=== PATIENT | male | born 1950 | race African-American/Black ===

== ENCOUNTER 2017-03-07 02:22 | Emergency (ER) | payer MEDICARE ==
--- NOTE | 2017-03-07 02:57 | ED Physician Documentation ---
General Adult - HISTORIAN Historian: patient - HPI Chief Complaint: General Adult Onset: hours (Last PM) Timing: still present Severity: moderate Modifying Factors: sitting makes worse, standing or moving seems to help Context: no precipitating factor noted Quality: achy feeling Further Comments: yes (Patient states that within the last 24 hours he has started to have some waxing and wain muscle aches in his legs bilat. When one hurts the other hurts. Has started some atorvastatin 4-5 days ago. Pain seems worse at this time. Has had some back pain in the past but has not cause any leg pain in the past. No weaknesss noted.) - ROS CONST: denies: fever, chills - PAST HX Past History: none, hypertension, renal disease Other History: CVA, other (allergeries) Surgeries/Procedures: none Immunizations: referred to PCP Allergies/Adverse Reactions: Allergies Allergy/AdvReac Type Severity Reaction Status Date / Time No Known Allergies Allergy Verified 03/07/17 02:44 Home Medications: Ambulatory Orders Medication Instructions Recorded Allopurinol [Zyloprim] 150 mg PO QD 08/05/12 Aspirin [Ludwin] 81 mg PO QD 08/05/12 Lisinopril [Zestril] 40 mg PO D 08/05/12 Atorvastatin Calcium [Atorvastatin 10 mg PO D 03/07/17 Calcium] Calcitriol [Rocaltrol] 0.25 mcg PO D 03/07/17 Chlorthalidone [Thalitone] 25 mg PO D 03/07/17 Fluticasone Propionate [Flovent 2 spray INH D 03/07/17 Diskus] amLODIPine BESYLATE [Norvasc] 10 mg PO D 03/07/17 - SOCIAL HX Smoking History: non-smoker Alcohol Use: none Drug Use: none - FAMILY HX Family History: No - VITAL SIGNS Vital Signs: Vital Signs Temp Pulse Resp BP Pulse Ox 145/86 01/12/14 21:57 - REVIEWED ASSESSMENTS Nursing Assessment Reviewed: Yes Vitals Reviewed: Yes General Adult Physical Exam - PHYSICAL EXAM GENERAL APPEARANCE: mild distress NECK: normal inspection RESPIRATORY: no resp distress, chest non-tender, breath sounds normal. No: wheezes, rales, rhonchi CVS: reg rate & rhythm, heart sounds normal, equal pulses, no murmur, no gallop SKIN: warm/dry, normal color EXTREMITIES: non-tender, normal range of motion, no evidence of injury, edema NEURO: oriented X3, CN's nml as tested, motor nml, sensation nml, mood/affect nml, cognition normal. No: weakness/sensory loss Discharge Clincal Impression: Adverse drug reaction Qualifiers: Encounter type: initial encounter Qualified Code(s): T88.7XXA - Unspecified adverse effect of drug or medicament, initial encounter Referrals: Rakan Braxton MD [Primary Care Provider] - 2 Days Additional Instructions: Stop atorvastatin. Take Tylenol as needed. Contact your primary care provider for further instruction. Drink a lot of fluids. CPK elevated at 620. Home Medications: Ambulatory Orders Allopurinol [Zyloprim] 150 mg PO QD 08/05/12 Aspirin [Ludwin] 81 mg PO QD 08/05/12 Lisinopril [Zestril] 40 mg PO D 08/05/12 Atorvastatin Calcium [Atorvastatin Calcium] 10 mg PO D 03/07/17 Calcitriol [Rocaltrol] 0.25 mcg PO D 03/07/17 Chlorthalidone [Thalitone] 25 mg PO D 03/07/17 Fluticasone Propionate [Flovent Diskus] 2 spray INH D 03/07/17 amLODIPine BESYLATE [Norvasc] 10 mg PO D 03/07/17 Condition: Stable Disposition: 01 HOME, SELF-CARE Decision to Admit: NO Date of Decison to Admit: 03/07/17 Decision Time: 03:07
[2017-03-07 03:24] LABS: BASOPHILS % 0.6 (0.0-1.5); EOSINOPHILS % 1.5 % (0.0-6.8); MEAN CORPUSCULAR HEMOGLOBIN 28.7 pg (28.0-34.0); MONOCYTES % 7.2 % (0.0-11.0); NEUTROPHILS # 5.4 # k/uL (1.4-7.7)
[2017-03-07 04:01] VITALS: BP 141/92
== END 2017-03-07 03:56 | disposition home or self-care (01) ==
LOC: ED 02:22
DX: T88.7XXA Unspecified adverse effect of drug or medicament, initial encounter (principal); X58.XXXA Exposure to other specified factors, initial encounter; Y93.9 Activity, unspecified; Y99.9 Unspecified external cause status
CPT/HCPCS: 80053; 82550; 84550; 85025; 99283